=== PATIENT | female | born 1985 | race Caucasian/White ===

== ENCOUNTER 2017-02-19 19:03 | Emergency (ER) | payer SELFPAY ==
[2017-02-19] MEDS ORDERED: Sodium Chloride 0.9% 1000 ML 1,000 ML IV SCH (19:45)
[2017-02-19 19:56] LABS: BASOPHIL % 0.2 % (0.0-0.4); Granulocytes % 50.6 % (36.0-66.0); Mean Corpuscular Hemoglobin 30.5 pg (26-32); Mean Platelet Volume 9.8 fl (6-9.5); Monocytes % 15.2 % (0.0-12.0); Platelet Count 271 K/mm3 (150-450); Red Blood Count 4.46 M/mm3 (4.1-5.4); Red Cell Distribution Width 12.2 % (11.5-14.0); White Blood Count 5.9 K/mm3 (4.0-10.5)
[2017-02-19] MEDS ORDERED: Sodium Chloride 0.9% 1000 ML 1,000 ML ONE ×2 (19:56→20:01)
[2017-02-19 20:11] LABS: ANION GAP 12.5 MEQ/L (5-15); BLOOD UREA NITROGEN 9 mg/dL (9-20); CHLORIDE 103 mEq/L (98-107); Carbon Dioxide 29.9 mEq/L (21-32); Glucose 96 MG/DL (70-110); Potassium 3.3 mEq/L (3.5-5.1); SODIUM 142 mEq/L (136-145)
[2017-02-19 21:08] LABS: Bacteria Few; Clue Cells None Seen
[2017-02-19] MEDS ORDERED: Sodium Chloride 0.9% 1000 ML 1,000 ML IV STA (21:08)
[2017-02-19 21:09] LABS: Trichomonas None Seen; Yeast None Seen
[2017-02-19 21:11] LABS: Collection Type CLEAN CATCH
[2017-02-19 21:12] LABS: Bilirubin NEGATIVE (NEGATIVE); COMPLETE URINE MICROSCOPIC? YES; Glucose NEGATIVE (NEGATIVE); Leukocyte Esterase 2+ (NEGATIVE)
[2017-02-19 21:18] LABS: Mucus MODERATE /HPF (NEGATIVE)
[2017-02-19 21:19] LABS: ADD URINE CULTURE? YES (NO); Bacteria PACKED /HPF (NEGATIVE); Epithelial Cells FEW /HPF (FEW)
[2017-02-19 22:46] LABS: CHLAMYDIA DNA NEGATIVE
--- NOTE | 2017-02-19 23:00 | ERPHSYRPT ---
- History of Present Illness Time Seen by Provider: 02/19/17 19:20 Source: patient Exam Limitations: clinical condition Patient Subjective Stated Complaint: pt states she has dark red, foul smelling vaginal bleeding for last few hours and has soaked thru 4 pads. states she has not had a menstrual period for at least 1 year. states she was diagnosed at [facility] with bilat ovary masses and uterine ca. denies having biopsy done. pt also states she has not voided in 2 days. Triage Nursing Assessment: pt alert and oriented, asnwers questions approp. pt ambulatory with steady gait noted. respirations nonlabored with lungs cta. abd soft and nontender to light palpation. bowel sounds present. 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 PATIENT NOW COMPLAINS OF VAGINAL BLEEDNG WITH DISCHARGE AND PELVIC PAIN. Timing/Duration: today Activites at Onset: none Quality: cramping Onset Location: suprapubic, vaginal Severity of Pain-Max: moderate Severity of Pain-Current: moderate Sexual intercourse history: non-contributory Modifying Factors: Improves With: movement Allergies/Adverse Reactions: No Known Drug Allergies Allergy (Verified 02/19/17 19:21) Hx Tetanus, Diphtheria Vaccination/Date Given: Yes Hx Influenza Vaccination/Date Given: No Hx Pneumococcal Vaccination/Date Given: No - Review of Systems Constitutional: No Fever, No Chills Eyes: No Symptoms Ears, Nose, & Throat: No Symptoms Respiratory: No Symptoms, No Cough, No Dyspnea Cardiac: No Symptoms, No Chest Pain, No Edema, No Syncope Abdominal/Gastrointestinal: No Abdominal Pain, No Nausea, No Vomiting, No Diarrhea Genitourinary Symptoms: Vaginal Bleeding, Other (PELVIC PAIN), No Dysuria Musculoskeletal: No Back Pain, No Neck Pain Skin: No Rash Neurological: No Dizziness, No Focal Weakness, No Sensory Changes Psychological: No Symptoms Endocrine: No Symptoms All Other Systems: Reviewed and Negative - Past Medical History Pertinent Past Medical History: Yes Neurological History: No Pertinent History ENT History: No Pertinent History Cardiac History: No Pertinent History Respiratory History: No Pertinent History Endocrine Medical History: No Pertinent History Musculoskeletal History: No Pertinent History GI Medical History: Other History: Other Psycho-Social History: Anxiety, Depression Female Reproductive Disorders: No Pertinent History - Past Surgical History Past Surgical History: Yes Neuro Surgical History: No Pertinent History Cardiac: No Pertinent History Respiratory: No Pertinent History Gastrointestinal: No Pertinent History Genitourinary: No Pertinent History Musculoskeletal: No Pertinent History Female Surgical History: Section - Social History Smoking Status: Current every day smoker How long have you smoked: 12 Exposure to second hand smoke: No Drug Use: none Patient Lives Alone: No - Female History Hx Last Menstrual Period: current - Nursing Vital Signs Nursing Vital Signs: Initial Vital Signs Temperature 97.5 F 02/19/17 19:08 Pulse Rate 106 H 02/19/17 19:08 Respiratory Rate 18 02/19/17 19:08 Blood Pressure 144/89 02/19/17 19:08 O2 Sat by Pulse Oximetry 100 02/19/17 19:08 Pain Scale Pain Intensity 8 - Physical Exam General Appearance: no apparent distress, alert Eye Exam: PERRL/EOMI, eyes nml inspection Ears, Nose, Throat Exam: normal ENT inspection, TMs normal, pharynx normal, moist mucous membranes Neck Exam: normal inspection, non-tender, supple, full range of motion Respiratory Exam: normal breath sounds, lungs clear, No respiratory distress Cardiovascular Exam: regular rate/rhythm, normal heart sounds, normal peripheral pulses Gastrointestinal/Abdomen Exam: soft, normal bowel sounds, No tenderness, No mass Pelvic Exam: normal external exam, cervical motion tenderness, vaginal bleeding (DARK BLOOD VAGINAL VAULT), other (SUPRAPUBIC TENDERNESS) Back Exam: normal inspection, normal range of motion, No CVA tenderness, No vertebral tenderness Extremity Exam: normal inspection, normal range of motion, pelvis stable Neurologic Exam: alert, oriented x 3, cooperative, detention worker II-XII nml as tested, normal mood/affect, sensation nml, No motor deficits Skin Exam: normal color, warm, dry Lymphatic Exam: No adenopathy SpO2 Interpretation: normal SpO2: 99 Oxygen Delivery: Room Air - CT Exams Abdomen/Pelvis CT Interpretation: Tele-radiologist Report (NORMAL APPENDIX, NO ACUTE FINDINGS) Ordered Tests: Active Orders 24 hr Category Date Time Status IV Insertion STAT Care 02/19/17 20:00 Active Orthostatic Vital Signs STAT Care 02/19/17 19:29 Active ABDOMEN AND PELVIS W CONTRAST [CT] Stat Exams 02/19/17 21:15 Taken BMP Stat Lab 02/19/17 19:32 Completed CBC W DIFF Stat Lab 02/19/17 19:32 Completed CULTURE,URINE Stat Lab 02/19/17 20:45 Received HCG,QUALITATIVE URINE Stat Lab 02/19/17 20:40 Completed UA W/ MICROSCOPIC Stat Lab 02/19/17 20:45 Completed Urine Triage Profile Stat Lab 02/19/17 20:40 Completed Wet Prep Stat Lab 02/19/17 20:45 Completed Medication Summary Generic Name Dose Route Start Last Admin Trade Name Freq PRN Reason Stop Dose Admin Sodium Chloride 1,000 mls @ 500 mls/hr 02/19/17 19:45 02/19/17 20:05 Sodium Chloride 0.9% 1000 Ml IV 03/21/17 19:44 500 mls/hr .Q2H SYLVIA Administration Discontinued Medications Generic Name Dose Route Start Last Admin Trade Name Freq PRN Reason Stop Dose Admin Sodium Chloride 1,000 mls @ 999 mls/hr 02/19/17 21:08 02/19/17 21:08 Sodium Chloride 0.9% 1000 Ml IV 02/19/17 22:08 999 mls/hr .Q1H1M STA Administration Ceftriaxone Sodium/Dextrose 1 g in 50 mls @ 100 mls/hr 02/19/17 23:22 23:29 Rocephin 1 Gm-D5w 50 Ml Bag IV 02/19/17 23:51 100 mls/hr STAT STA Administration Ceftriaxone Sodium/Dextrose Confirm 02/19/17 23:28 Rocephin 1 Gm-D5w 50 Ml Bag Administered 02/19/17 23:29 Dose 1 g in 50 mls @ ud IV .[facility] Lab/Rad Data: Laboratory Result Diagrams 02/19/17 19:32 02/19/17 19:32 Laboratory Results 02/19/17 02/19/17 02/19/17 Range/Units 20:45 20:45 20:40 WBC (4.0-10.5) K/mm3 RBC (4.1-5.4) M/mm3 Hgb (12.0-16.0) gm/dl Hct (35-47) % MCV (78-100) fl MCH (26-32) pg MCHC (32-36) g/dl RDW (11.5-14.0) % Plt Count (150-450) K/mm3 MPV (6-9.5) fl Gran % (36.0-66.0) % Lymphocytes % (24.0-44.0) % Monocytes % (0.0-12.0) % Eosinophils % (0.00-5.0) % Basophils % (0.0-0.4) % Basophils # (0-0.4) Sodium (136-145) mEq/L Potassium (3.5-5.1) mEq/L Chloride (98-107) mEq/L Carbon Dioxide (21-32) mEq/L Anion Gap (5-15) MEQ/L BUN (9-20) mg/dL Creatinine (0.55-1.30) mg/dl Estimated GFR ML/MIN Glucose (70-110) MG/DL Calcium (8.5-10.1) mg/dL Ur Collection Type CLEAN CATCH Urine Color YELLOW (YELLOW) Urine Appearance CLOUDY (CLEAR) Urine pH 6.0 (5-6) Ur Specific [place] 1.025 (1.005-1.025) Urine Protein TRACE (Negative) Urine Ketones NEGATIVE (NEGATIVE) Urine Blood 5-10 (0-5) Oseas/ul Urine Nitrite POSITIVE (NEGATIVE) Urine Bilirubin NEGATIVE (NEGATIVE) Urine Urobilinogen NORMAL (0-1) mg/dL Ur Leukocyte Esterase 2+ (NEGATIVE) Urine Microscopic RBC 2-5 (0-2) /HPF Urine Microscopic WBC 5-10 (0-5) /HPF Ur Epithelial Cells FEW (FEW) /HPF Urine Bacteria PACKED (NEGATIVE) /HPF Urine Mucus MODERATE (NEGATIVE) /HPF Urine Glucose NEGATIVE (NEGATIVE) mg/dL Urine HCG, Qual NEGATIVE (Negative) WBC (Wet Prep) Rare RBC (Wet Prep) Few Epi Cells (Wet Prep) Rare Bacteria (Wet Prep) Few Clue Cells (Wet Prep) None Seen Trichomonas (Wet Prep) None Seen Budding Yeast (Wet Prp) None Seen Urine Opiates Level (NEGATIVE) Ur Methadone (NEGATIVE) Urine Barbiturates (NEGATIVE) Ur Phencyclidine (PCP) (NEGATIVE) Urine Amphetamine (NEGATIVE) U Benzodiazepine Level (NEGATIVE) Urine Cocaine (NEGATIVE) Urine Marijuana (THC) (NEGATIVE) Chlamydia DNA (PCR) NEGATIVE N.gonorrhoeae DNA Probe NEGATIVE Specimen Received 02/19/17 2100 02/19/17 02/19/17 02/19/17 Range/Units 20:40 19:32 19:32 WBC 5.9 (4.0-10.5) K/mm3 RBC 4.46 (4.1-5.4) M/mm3 Hgb 13.6 (12.0-16.0) gm/dl Hct 41.5 (35-47) % MCV 93.0 (78-100) fl MCH 30.5 (26-32) pg MCHC 32.8 (32-36) g/dl RDW 12.2 (11.5-14.0) % Plt Count 271 (150-450) K/mm3 MPV 9.8 H (6-9.5) fl Gran % 50.6 (36.0-66.0) % Lymphocytes % 28.0 (24.0-44.0) % Monocytes % 15.2 H (0.0-12.0) % Eosinophils % 6.0 H (0.00-5.0) % Basophils % 0.2 (0.0-0.4) % Basophils # 0.01 (0-0.4) Sodium 142 (136-145) mEq/L Potassium 3.3 L (3.5-5.1) mEq/L Chloride 103 (98-107) mEq/L Carbon Dioxide 29.9 (21-32) mEq/L Anion Gap 12.5 (5-15) MEQ/L BUN 9 (9-20) mg/dL Creatinine 0.76 (0.55-1.30) mg/dl Estimated GFR > 60 ML/MIN Glucose 96 (70-110) MG/DL Calcium 8.9 (8.5-10.1) mg/dL Ur Collection Type Urine Color (YELLOW) Urine Appearance (CLEAR) Urine pH (5-6) Ur Specific [place] (1.005-1.025) Urine Protein (Negative) Urine Ketones (NEGATIVE) Urine Blood (0-5) Oseas/ul Urine Nitrite (NEGATIVE) Urine Bilirubin (NEGATIVE) Urine Urobilinogen (0-1) mg/dL Ur Leukocyte Esterase (NEGATIVE) Urine Microscopic RBC (0-2) /HPF Urine Microscopic WBC (0-5) /HPF Ur Epithelial Cells (FEW) /HPF Urine Bacteria (NEGATIVE) /HPF Urine Mucus (NEGATIVE) /HPF Urine Glucose (NEGATIVE) mg/dL Urine HCG, Qual (Negative) WBC (Wet Prep) RBC (Wet Prep) Epi Cells (Wet Prep) Bacteria (Wet Prep) Clue Cells (Wet Prep) Trichomonas (Wet Prep) Budding Yeast (Wet Prp) Urine Opiates Level NEG. (NEGATIVE) Ur Methadone NEG. (NEGATIVE) Urine Barbiturates NEG. (NEGATIVE) Ur Phencyclidine (PCP) NEG. (NEGATIVE) Urine Amphetamine NEG. (NEGATIVE) U Benzodiazepine Level NEG. (NEGATIVE) Urine Cocaine NEG. (NEGATIVE) Urine Marijuana (THC) NEG. (NEGATIVE) Chlamydia DNA (PCR) N.gonorrhoeae DNA Probe Specimen Received - Progress Progress Note: 02/20/17 00:14 IV BOLUS NORMAL SALINE 1 LITER/ HR, ROCEPHIN 1GM IVPB Blood Culture(s) Obtained: Yes Antibiotics given: Yes Counseled pt/family regarding: lab results, diagnosis, need for follow-up, rad results - Departure Time of Disposition: 00:20 Departure Disposition: Skilled Nursing/Long Term Clinical Impression: PELVIC INFLAMMATORY DISEASE, URINARY TRACT INFECTION Condition: Stable Critical Care Time: No Referrals: NATY LOPEZ MD [Primary Care Provider] - Additional Instructions: FOLLOWUP WITH YOUR FAMILY PHYSICIAN FOR EVALUATION REFERRAL FOR COLONOSCOPY AND TO SUPREME COURT JUDGE. ULTRAM 50MG EVERY 6 HOURS FOR PAIN. ANTIBIOTIC LEVAQUIN 500MG DAILY FOR 10 DAYS, FLAGYL 500MG EVERY 6 HOURS FOR 10 DAYS. ZOFRAN 4MG EVERY 6 HOURS FOR NAUSEA. RETURN TO EMERGENCY FOR INCREASING PAIN. Prescriptions: Ondansetron [Zofran Odt] 4 mg PO Q6H PRN PRN #8 tab.rapdis PRN Reason: Nausea Tramadol HCl 50 mg [Ultram 50 mg] 50 mg PO Q6HPRN PRN #15 tablet PRN Reason: Pain Levofloxacin [Levaquin] 500 mg PO DAILY #10 tablet Metronidazole 500 mg [Flagyl 500 MG] 500 mg PO QID #40 tablet
[2017-02-19] MEDS ORDERED: ROCEPHIN 1 Gm-D5w 50 ml Bag** 1 G/50 ML IVPB IV STA (23:22)
[2017-02-19] MEDS ORDERED: ROCEPHIN 1 Gm-D5w 50 ml Bag** 1 G/50 ML IVPB IV ONE (23:28)
[2017-02-20 00:18] VITALS: BP 105/60; PULSE 68
[2017-02-20 00:22] VITALS: O2SAT 99
--- NOTE | 2017-02-20 09:15 | XRAY ---
Indication: Lower abdominal pain. Dysuria. Multiple contiguous axial images obtained through the abdomen and pelvis using 80 cc Isovue 370 contrast only. Comparison: None. Lung bases clear. Heart is not enlarged. Noncontrasted stomach and bowel loops appear nonobstructed. Moderate diffuse scattered colonic fecal debris. Appendix not seen. No free fluid/air. Gallbladder partially contracted without gallstones. 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 Finding can be seen with pelvic congestion syndrome. Remaining liver, pancreas, spleen, adrenal glands, kidneys, ureters, bladder, uterus, and aorta appear unremarkable. No pathologic retroperitoneal lymphadenopathy. Osseous structures intact. Impression: 1. Fecal stasis without obstruction. 2. 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 Rule out pelvic congestion syndrome. 3. Remaining CT abdomen/pelvis with contrast exam is negative. Comment: Preliminary interpretation was made by C. Left ovarian vein dilatation not reported and is not critical finding. CT DI 9.17
== END 2017-02-20 00:25 | disposition home or self-care (01) ==
LOC: ED 19:03
DX: N73.9 Female pelvic inflammatory disease, unspecified (principal); N39.0 Urinary tract infection, site not specified
CPT/HCPCS: 36000; 36415; 74177; 80048; 80307; 81000; 84703; 85025; 87077; 87086; 87210; 87490; 87590; 96360; 96361; 96365; 99284; J0696

== ENCOUNTER 2017-02-24 11:17 | Emergency (ER) | payer OTHER ==
[2017-02-24 11:31] VITALS: O2SAT 100
--- NOTE | 2017-02-24 11:40 | ERPHSYRPT ---
- History of Present Illness Time Seen by Provider: 02/24/17 11:34 Source: patient, police Exam Limitations: no limitations Patient Subjective Stated Complaint: Pt c/o left flank pain and very minimal urinary output. This episode started around midnight last night. Pt states she was in here a few days ago and diagnosed with a UTI and placed on cipro. Pt states her abdomen is distended. She is nauseated. Triage Nursing Assessment: Pt alert and oriented x3. skin pink warm and dry. afebrile. bowel sounds present x3. abdomen distended and tender with palpation Physician History: The patient is a 31-year-old female inmate at the local [facility] he complaining of left flank discomfort since last night. She states she has very low urinary output. She denies fever. She was seen in this ER on 02/19/17 with a diagnosis of pelvic inflammatory disease. Per her record she was given 1 g of ceftriaxone in the ER. She was sent back to [facility] with levofloxacin 500 mg daily for 10 days and metronidazole 500 mg 4 times a day for [address] scan of her abdomen and pelvis on 02/19/17 was unremarkable. Timing/Duration: today Severity: moderate Modifying Factors: Improves With: nothing Associated Symptoms: nausea Allergies/Adverse Reactions: No Known Drug Allergies Allergy (Verified 02/19/17 19:21) Home Medications: Ciprofloxacin/Ciprofloxa HCl [Ciprofloxacin ER 500 mg Tablet] 500 mg PO BID 02/02 [History] Ibuprofen 600 mg PO BID 02/24/17 [History] Metronidazole 500 mg [Flagyl 500 MG] 2 tab PO BID 02/24/17 [History] Hx Tetanus, Diphtheria Vaccination/Date Given: No Hx Influenza Vaccination/Date Given: Yes Hx Pneumococcal Vaccination/Date Given: Yes - Review of Systems Constitutional: No Fever, No Chills Eyes: No Symptoms Ears, Nose, & Throat: No Symptoms Respiratory: No Cough, No Dyspnea Cardiac: No Chest Pain, No Edema, No Syncope Abdominal/Gastrointestinal: Nausea Genitourinary Symptoms: Urinary Retention, Flank Pain Musculoskeletal: No Back Pain, No Neck Pain Skin: No Rash Neurological: No Dizziness, No Focal Weakness, No Sensory Changes Psychological: No Symptoms Endocrine: No Symptoms Hematologic/Lymphatic: No Symptoms Immunological/Allergic: No Symptoms All Other Systems: Reviewed and Negative - Past Medical History Pertinent Past Medical History: Yes Neurological History: No Pertinent History ENT History: No Pertinent History Cardiac History: No Pertinent History Respiratory History: No Pertinent History Endocrine Medical History: No Pertinent History Musculoskeletal History: No Pertinent History GI Medical History: Other History: Other Psycho-Social History: Anxiety Female Reproductive Disorders: Endometriosis, Uterine Cancer Other Medical History: fistula, deaf in right ear, - Past Surgical History Past Surgical History: Yes Neuro Surgical History: No Pertinent History Cardiac: No Pertinent History Respiratory: No Pertinent History Gastrointestinal: No Pertinent History Genitourinary: No Pertinent History Musculoskeletal: No Pertinent History Female Surgical History: Section Other Surgical History: skin graft - Social History Smoking Status: Current every day smoker How long have you smoked: 12 Exposure to second hand smoke: No Drug Use: methamphetamines Patient Lives Alone: No - Female History Hx Last Menstrual Period: "bleeding for last 10 months" - Nursing Vital Signs Nursing Vital Signs: Initial Vital Signs Temperature 98 F 02/24/17 11:22 Pulse Rate 72 02/24/17 11:22 Respiratory Rate 16 02/24/17 11:22 Blood Pressure 131/83 02/24/17 11:22 O2 Sat by Pulse Oximetry 100 02/24/17 11:22 Pain Scale Pain Intensity 9 - Physical Exam General Appearance: no apparent distress, alert Eye Exam: PERRL/EOMI, eyes nml inspection Ears, Nose, Throat Exam: normal ENT inspection, TMs normal, pharynx normal, moist mucous membranes Neck Exam: normal inspection, non-tender, supple, full range of motion Respiratory Exam: normal breath sounds, lungs clear, No respiratory distress Cardiovascular Exam: regular rate/rhythm, normal heart sounds, normal peripheral pulses Gastrointestinal/Abdomen Exam: soft, tenderness (left side) Pelvic Exam: not done Rectal Exam: not done Back Exam: CVA tenderness (left) Extremity Exam: normal inspection, normal range of motion, pelvis stable Neurologic Exam: alert, oriented x 3, cooperative, normal mood/affect, nml cerebellar function, nml station & gait, sensation nml, No motor deficits Skin Exam: normal color, warm, dry, No rash Lymphatic Exam: No adenopathy SpO2 Interpretation: normal SpO2: 100 Oxygen Delivery: Room Air - Radiology Exams Abdomen X-ray Interpretation: Teleradiologist Report, Negative, Other (moderate diffuse colonic fecal debris per Dr Perla.) Ordered Tests: Active Orders 24 hr Category Date Time Status Cath for Specimen-Straight STAT Care 02/24/17 11:55 Active IV Insertion STAT Care 02/24/17 11:54 Active KUB Stat Exams 02/24/17 13:00 Completed CBC W DIFF Stat Lab 02/24/17 12:10 Completed CMP Stat Lab 02/24/17 12:10 Completed HCG QUALITATIVE,SERUM Stat Lab 02/24/17 12:10 Completed Lactic Acid Stat Lab 02/24/17 12:15 Completed UA W/ MICROSCOPIC Stat Lab 02/24/17 12:10 Completed Medication Summary Discontinued Medications Generic Name Dose Route Start Last Admin Trade Name Freq PRN Reason Stop Dose Admin Sodium Chloride 1,000 mls @ 999 mls/hr 02/24/17 11:54 02/24/17 12:01 Sodium Chloride 0.9% 1000 Ml IV 02/24/17 12:54 999 mls/hr .Q1H1M STA Administration Sodium Chloride Confirm 02/24/17 12:00 Sodium Chloride 0.9% 1000 Ml Administered 02/24/17 12:01 Dose 1,000 mls @ ud .ROUTE .[facility] ONE Ondansetron HCl 4 mg 02/24/17 11:54 02/24/17 12:01 Zofran 4 Mg/2 Ml Vial IV 02/24/17 11:55 4 mg STAT ONE Administration Ondansetron HCl Confirm 02/24/17 12:00 Zofran 4 Mg/2 Ml Vial Administered 02/24/17 12:01 Dose 4 mg .ROUTE .[facility] ONE Lab/Rad Data: Laboratory Result Diagrams 02/24/17 12:10 02/24/17 12:10 Laboratory Results 02/24/17 02/24/17 02/24/17 Range/Units 12:15 12:10 12:10 WBC (4.0-10.5) K/mm3 RBC (4.1-5.4) M/mm3 Hgb (12.0-16.0) gm/dl Hct (35-47) % MCV (78-100) fl MCH (26-32) pg MCHC (32-36) g/dl RDW (11.5-14.0) % Plt Count (150-450) K/mm3 MPV (6-9.5) fl Gran % (36.0-66.0) % Lymphocytes % (24.0-44.0) % Monocytes % (0.0-12.0) % Eosinophils % (0.00-5.0) % Basophils % (0.0-0.4) % Basophils # (0-0.4) Sodium (136-145) mEq/L Potassium (3.5-5.1) mEq/L Chloride (98-107) mEq/L Carbon Dioxide (21-32) mEq/L Anion Gap (5-15) MEQ/L BUN (9-20) mg/dL Creatinine (0.55-1.30) mg/dl Estimated GFR ML/MIN Glucose (70-110) MG/DL Lactic Acid 1.3 (0.4-2.0) Calcium (8.5-10.1) mg/dL Total Bilirubin (0.2-1.0) mg/dL AST (15-37) U/L ALT (12-78) U/L Alkaline Phosphatase (46-116) U/L Serum Total Protein (6.4-8.2) gm/dL Albumin (3.4-5.0) g/dL Serum , Qual NEGATIVE (Negative) Ur Collection Type CATH Urine Color YELLOW (YELLOW) Urine Appearance CLEAR (CLEAR) Urine pH 6.0 (5-6) Ur Specific [place] 1.010 (1.005-1.025) Urine Protein NEGATIVE (Negative) Urine Ketones NEGATIVE (NEGATIVE) Urine Blood NEGATIVE (0-5) Oseas/ul Urine Nitrite NEGATIVE (NEGATIVE) Urine Bilirubin NEGATIVE (NEGATIVE) Urine Urobilinogen NORMAL (0-1) mg/dL Ur Leukocyte Esterase TRACE (NEGATIVE) Urine Microscopic RBC 0-2 (0-2) /HPF Urine Microscopic WBC 2-5 (0-5) /HPF Ur Epithelial Cells FEW (FEW) /HPF Urine Bacteria RARE (NEGATIVE) /HPF Hyaline Casts 0-2 (0-2) /LPF Urine Culture Reflexed NO (NO) Urine Glucose NEGATIVE (NEGATIVE) mg/dL Specimen Received 02/24/17 1215 02/24/17 02/24/17 Range/Units 12:10 12:10 WBC 9.2 (4.0-10.5) K/mm3 RBC 4.24 (4.1-5.4) M/mm3 Hgb 13.0 (12.0-16.0) gm/dl Hct 40.1 (35-47) % MCV 94.6 (78-100) fl MCH 30.7 (26-32) pg MCHC 32.4 (32-36) g/dl RDW 12.5 (11.5-14.0) % Plt Count 254 (150-450) K/mm3 MPV 9.5 (6-9.5) fl Gran % 69.3 H (36.0-66.0) % Lymphocytes % 14.9 L (24.0-44.0) % Monocytes % 12.4 H (0.0-12.0) % Eosinophils % 3.2 (0.00-5.0) % Basophils % 0.2 (0.0-0.4) % Basophils # 0.02 (0-0.4) Sodium 142 (136-145) mEq/L Potassium 4.2 (3.5-5.1) mEq/L Chloride 105 (98-107) mEq/L Carbon Dioxide 29.2 (21-32) mEq/L Anion Gap 12.3 (5-15) MEQ/L BUN 10 (9-20) mg/dL Creatinine 1.19 (0.55-1.30) mg/dl Estimated GFR 56 ML/MIN Glucose 93 (70-110) MG/DL Lactic Acid (0.4-2.0) Calcium 9.2 (8.5-10.1) mg/dL Total Bilirubin 0.20 (0.2-1.0) mg/dL AST 31 (15-37) U/L ALT 30 (12-78) U/L Alkaline Phosphatase 54 (46-116) U/L Serum Total Protein 6.8 (6.4-8.2) gm/dL Albumin 4.0 (3.4-5.0) g/dL Serum , Qual (Negative) Ur Collection Type Urine Color (YELLOW) Urine Appearance (CLEAR) Urine pH (5-6) Ur Specific [place] (1.005-1.025) Urine Protein (Negative) Urine Ketones (NEGATIVE) Urine Blood (0-5) Oseas/ul Urine Nitrite (NEGATIVE) Urine Bilirubin (NEGATIVE) Urine Urobilinogen (0-1) mg/dL Ur Leukocyte Esterase (NEGATIVE) Urine Microscopic RBC (0-2) /HPF Urine Microscopic WBC (0-5) /HPF Ur Epithelial Cells (FEW) /HPF Urine Bacteria (NEGATIVE) /HPF Hyaline Casts (0-2) /LPF Urine Culture Reflexed (NO) Urine Glucose (NEGATIVE) mg/dL Specimen Received - Progress Progress: unchanged Counseled pt/family regarding: lab results, diagnosis, rad results - Departure Time of Disposition: 13:39 Departure Disposition: Custodial/Detention Clinical Impression: Constipation Condition: Stable Critical Care Time: No Referrals: NATY LOPEZ MD [Primary Care Provider] - Additional Instructions: All of the laboratory results were normal. The abdominal x-ray shows constipation. Take one bottle of magnesium citrate to encourage a bowel movement. Follow-up as needed. Continue with all other meds as previously directed.
[2017-02-24] MEDS ORDERED: Zofran 4 MG/2 ML VIAL IV ONE (11:54)
[2017-02-24] MEDS ORDERED: Sodium Chloride 0.9% 1000 ML 1,000 ML IV STA (11:54)
[2017-02-24] MEDS ORDERED: Zofran 4 MG/2 ML VIAL ONE (12:00)
[2017-02-24] MEDS ORDERED: Sodium Chloride 0.9% 1000 ML 1,000 ML ONE (12:00)
[2017-02-24 12:18] LABS: BASOPHIL % 0.2 % (0.0-0.4); Eosinophil % 3.2 % (0.00-5.0); Granulocytes % 69.3 % (36.0-66.0); Lymphocytes % 14.9 % (24.0-44.0); Mean Cell Volume 94.6 fl (78-100); Mean Corpuscular Hemoglobin 30.7 pg (26-32); Mean Platelet Volume 9.5 fl (6-9.5); Monocytes % 12.4 % (0.0-12.0); Platelet Count 254 K/mm3 (150-450); Red Blood Count 4.24 M/mm3 (4.1-5.4); Red Cell Distribution Width 12.5 % (11.5-14.0); White Blood Count 9.2 K/mm3 (4.0-10.5)
[2017-02-24 12:21] LABS: Bilirubin NEGATIVE (NEGATIVE); Blood NEGATIVE Ery/ul (0-5); COMPLETE URINE MICROSCOPIC? YES; Collection Type CATH; Glucose NEGATIVE (NEGATIVE); Leukocyte Esterase TRACE (NEGATIVE)
[2017-02-24 12:29] LABS: Bacteria RARE /HPF (NEGATIVE); Epithelial Cells FEW /HPF (FEW); Hyaline Casts 0-2 /LPF (0-2)
[2017-02-24 12:30] LABS: ADD URINE CULTURE? NO (NO)
[2017-02-24 12:41] LABS: ANION GAP 12.3 MEQ/L (5-15); BILIRUBIN,TOTAL 0.2 mg/dL (0.2-1.0); Carbon Dioxide 29.2 mEq/L (21-32); Potassium 4.2 mEq/L (3.5-5.1); Total Protein 6.8 gm/dL (6.4-8.2)
--- NOTE | 2017-02-24 13:30 | XRAY ---
Indication: Left flank/left lower quadrant pain. Reflux. Comparison: None KUB nonacute and nonobstructed with moderate diffuse scattered colonic fecal debris throughout similar to CT abdomen/pelvis February 19, 2017. Solid organs and osseous structures unremarkable.
[2017-02-24 14:04] VITALS: BP 124/79; PULSE 73
== END 2017-02-24 14:04 | disposition home or self-care (01) ==
LOC: ED 11:17
DX: K59.00 Constipation, unspecified (principal); R10.9 Unspecified abdominal pain; R11.0 Nausea; Z79.899 Other long term (current) drug therapy
CPT/HCPCS: 36000; 36415; 74000; 80053; 81000; 83605; 84703; 85025; 96360; 96374; 99284; J2405; P9612